=== PATIENT | male | born 1985 | race African-American/Black ===

== ENCOUNTER 2020-09-21 11:17 | Emergency (ER) | payer OTHER ==
[~2020-09-21] VITALS: Ht 167.6 cm; Wt 107.0 kg
[~2020-09-21 11:17] MED LIST: CARV3.1242 MT; FEXO180T87 PO; PANT40TA51 PO
[2020-09-21] MEDS ORDERED: NAPR500T7 MT (13:01)
[2020-09-21 13:14] VITALS: BP 151/91
== END 2020-09-21 13:14 | disposition home or self-care (01) ==
LOC: ER 11:17
DX: R07.81 Pleurodynia (principal); R03.0 Elevated blood-pressure reading, without diagnosis of hypertension
CPT/HCPCS: 71101; 99283

== ENCOUNTER 2020-09-23 11:50 | Emergency (ER) | payer OTHER ==
[~2020-09-23] VITALS: Ht 172.7 cm; Wt 88.0 kg
[~2020-09-23 11:50] MED LIST changes: +NAPR500T7 MT
[2020-09-23] MEDS ORDERED: SULF1TAB48 MT (13:28)
[2020-09-23] MEDS ORDERED: CEPH750C7 MT (13:28)
[2020-09-23 13:31] VITALS: BP 161/82
== END 2020-09-23 13:41 | disposition home or self-care (01) ==
LOC: ER 11:50
DX: L73.2 Hidradenitis suppurativa (principal); D17.9 Benign lipomatous neoplasm, unspecified
CPT/HCPCS: 99281

== ENCOUNTER 2020-09-26 21:16 | Emergency (ER) | payer OTHER ==
[~2020-09-26] VITALS: Ht 167.6 cm; Wt 105.0 kg
[~2020-09-26 21:16] MED LIST changes: +CEPH750C7 MT; +SULF1TAB48 MT
[2020-09-26 23:49] VITALS: BP 125/84
== END 2020-09-27 00:12 | disposition home or self-care (01) ==
LOC: ER 21:16
DX: R07.9 Chest pain, unspecified (principal); R00.2 Palpitations; F41.9 Anxiety disorder, unspecified; I34.1 Nonrheumatic mitral (valve) prolapse; Z79.899 Other long term (current) drug therapy
CPT/HCPCS: 93005; 99283